=== PATIENT | female | born 1980 | race Caucasian/White ===

== ENCOUNTER 2018-05-08 22:51 | Outpatient (CLI) | payer OTHER ==
[2018-05-09 00:35] LABS: ADD UMIC YES; UR ASCORBIC ACID NEGATIVE (NEGATIVE); UR BACTERIA FEW /HPF (NONE SEEN); UR BILIRUBIN (Dip) NEGATIVE (NEGATIVE); UR BLOOD (Dip) 2+ mg/dL (NEGATIVE); UR CLARITY SLIGHTLY CLOUDY (CLEAR); UR COLOR YELLOW (YELLOW); UR GLUCOSE (Dip) NEGATIVE (NEGATIVE); UR KETONES (Dip) TRACE mg/dL (NEGATIVE); UR LEUKOCYTE ESTERASE (Dip) NEGATIVE Leu/ul (NEGATIVE); UR MUCUS FEW /HPF (NONE SEEN); UR NITRITE (Dip) NEGATIVE (NEGATIVE); UR RBC 50 /HPF (0-5); UR SPECIFIC GRAVITY (Dip) 1.012 (1.003-1.030); UR SQUAMOUS EPITHELIAL CELL FEW /HPF (FEW); UR TOTAL PROTEIN (Dip) NEGATIVE (NEGATIVE); UR UROBILINOGEN (Dip) NEGATIVE (NEGATIVE); UR WBC 3 /HPF (0-5)
[2018-05-09] MEDS: LACTATED RINGER'S 1,000 ML IV ×2 (02:20→04:30)
[2018-05-09 03:12] LABS: ADD MAN DIFF? NO
[2018-05-09 03:14] LABS: WHITE BLOOD COUNT 11.6 10^3/ul (4.8-10.8)
[2018-05-09 03:14] LABS: BASOPHIL # 0.1 10^3/ul (0.0-0.1); BASOPHILS % 0.4 % (0.0-2.0); EOSINOPHILS # 0.3 10^3/ul (0.0-0.5); EOSINOPHILS % 2.4 % (0.0-7.0); HEMATOCRIT 36.4 % (37.0-47.0); LYMPHOCYTES # 2.9 10^3/ul (0.8-2.9); LYMPHOCYTES % 24.7 % (15.0-51.0); MEAN CORPUSCULAR HEMOGLOBIN 30.9 pg (29.0-33.0); MEAN CORPUSCULAR VOLUME 93.8 fl (82.0-101.0); MEAN PLATELET VOLUME 10.2 fl (7.4-10.4); MONOCYTES % 8.7 % (0.0-11.0); NEUTROPHIL # 7.3 10^3/ul (1.6-7.5); NEUTROPHILS % 63.3 % (39.0-77.0); PLATELET COUNT 291 10^3/UL (140-415); RED BLOOD COUNT 3.88 10^6/ul (4.20-5.40); RED CELL DISTRIBUTION WIDTH 12.5 % (11.5-14.5)
== END 2018-05-09 06:45 | disposition home or self-care (01) ==
LOC: OBT 22:51 → L-D 22:51 → OBT 05-09 06:45
DX: O62.9 Abnormality of forces of labor, unspecified (principal); O09.523 Supervision of elderly multigravida, third trimester; Z3A.34 34 weeks gestation of pregnancy
CPT/HCPCS: 36415; 76815; 76817; 81001; 85025; 96360; 96361

== ENCOUNTER 2018-05-09 19:25 | Outpatient (CLI) | payer OTHER | END 2018-05-09 21:05 | disposition home or self-care (01) | LOC: OBT 19:25 → L-D 19:26 → OBT 21:05 | DX: O62.9 Abnormality of forces of labor, unspecified (principal); O09.523 Supervision of elderly multigravida, third trimester; Z3A.34 34 weeks gestation of pregnancy | CPT/HCPCS: Z7500 ==

== ENCOUNTER 2018-05-30 12:55 | Inpatient (IN) | payer OTHER ==
[2018-05-30] MEDS ORDERED: MISOPROSTOL 200 MCG TAB PR (17:00)
[2018-05-30] MEDS ORDERED: OXYTOCIN 30 UNITS/LR 500 ML IV ×2 (17:00)
[2018-05-30] MEDS ORDERED: CARBOPROST 250 MCG INJ IM (17:00)
[2018-05-30] MEDS ORDERED: METHYLERGONOVINE 0.2 MG INJ IM (17:00)
[2018-05-30] MEDS ORDERED: LIDOCAINE 1% (MPF) 30 ML INJ INJ (17:00)
[2018-05-30] MEDS ORDERED: MOMETASONE 0.24 GM INHALER INH (17:02)
[2018-05-30 17:07] LABS: ADD MAN DIFF? NO
[2018-05-30 17:09] LABS: BASOPHILS % 0.4 % (0.0-2.0); EOSINOPHILS # 0.2 10^3/ul (0.0-0.5); HEMATOCRIT 40.2 % (37.0-47.0); HEMOGLOBIN 13.3 g/dl (12.0-16.0); LYMPHOCYTES # 2.6 10^3/ul (0.8-2.9); MEAN CORPUSCULAR HEMOGLOBIN 31.1 pg (29.0-33.0); MEAN CORPUSCULAR HGB CONC 33.1 g/dl (32.0-37.0); MEAN CORPUSCULAR VOLUME 93.9 fl (82.0-101.0); MEAN PLATELET VOLUME 9.8 fl (7.4-10.4); MONOCYTE # 0.9 10^3/ul (0.3-0.9); MONOCYTES % 7.6 % (0.0-11.0); NEUTROPHIL # 7.4 10^3/ul (1.6-7.5); NEUTROPHILS % 66.3 % (39.0-77.0); PLATELET COUNT 267 10^3/UL (140-415); RED BLOOD COUNT 4.28 10^6/ul (4.20-5.40); RED CELL DISTRIBUTION WIDTH 12.9 % (11.5-14.5)
[2018-05-30 17:09] LABS: WHITE BLOOD COUNT 11.2 10^3/ul (4.8-10.8)
[2018-05-30 17:24] LABS: INR 0.86; PROTIME 11.8 Sec (11.9-14.9); PT RATIO 0.9
[2018-05-30 17:25] LABS: PARTIAL THROMBOPLASTIN TIME 26.7 Sec (23.0-35.0)
[2018-05-30] MEDS: LACTATED RINGER'S 1,000 ML IV (18:19)
[2018-05-30 19:37] LABS: HEPATITIS B SURFACE ANTIGEN NEGATIVE (NEGATIVE)
[2018-05-30] MEDS ORDERED: MINERAL OIL LIGHT 10 ML VIAL TOP (20:30)
[2018-05-30] MEDS: AMPICILLIN 2 GM/NS (PMX) 100 ML IV (20:36)
[2018-05-30 22:34] LABS: RAPID PLASMA REAGIN NONREACTIVE (NR)
[2018-05-31] MEDS: LACTATED RINGER'S 1,000 ML IV ×3 (01:17→22:46)
[2018-05-31] MEDS: AMPICILLIN 1 GM/NS (PMX) 50 ML IV ×3 (01:19→12:49)
[2018-05-31] MEDS: OXYTOCIN 30 UNITS/LR 500 ML IV ×2 (15:44→17:33)
[2018-05-31] MEDS ORDERED: BUTORPHANOL 2 MG INJ (16:11)
[2018-05-31] MEDS: BUTORPHANOL 2 MG INJ IV (16:13)
[2018-05-31] MEDS ORDERED: BUTORPHANOL 1 MG INJ IV (16:30)
[2018-05-31] MEDS ORDERED: ONDANSETRON 4 MG INJ IV (18:30)
[2018-05-31] MEDS: IBUPROFEN 600 MG TAB PO ×3 (18:30→23:06)
[2018-05-31] MEDS ORDERED: MISOPROSTOL 200 MCG TAB PR (18:30)
[2018-05-31] MEDS ORDERED: METHYLERGONOVINE 0.2 MG INJ IM (18:30)
[2018-05-31] MEDS ORDERED: ONDANSETRON 4 MG TAB PO (18:30)
[2018-05-31] MEDS ORDERED: OXYTOCIN 30 UNITS/LR 500 ML IV (18:30)
[2018-05-31] MEDS ORDERED: ZOLPIDEM 5 MG TAB PO (18:30)
[2018-05-31] MEDS ORDERED: NACL 0.9% 3 ML SYG IV (18:30)
[2018-05-31] MEDS ORDERED: SENNA/DOCUSATE NA (8.6MG/50MG) TAB PO (18:30)
[2018-05-31] MEDS ORDERED: CARBOPROST 250 MCG INJ IM (18:30)
[2018-05-31] MEDS: OXYCODONE/ASPIRIN (4.88/325) TAB PO (19:01)
[2018-05-31] MEDS: SENNA/DOCUSATE NA (8.6MG/50MG) TAB PO (20:31)
[2018-05-31] MEDS: WITCH HAZEL/GLYCERIN PAD PR (20:31)
[2018-05-31] MEDS: LANOLIN HPA 1 PKT TOP (20:31)
[2018-05-31] MEDS: LORATADINE 10 MG TAB PO (23:06)
[2018-06-01] MEDS: OXYCODONE/ASPIRIN (4.88/325) TAB PO (00:08)
[2018-06-01] MEDS: OXYTOCIN 30 UNITS/LR 500 ML IV (00:23)
[2018-06-01] MEDS: LACTATED RINGER'S 1,000 ML IV ×2 (01:30→09:30)
[2018-06-01] MEDS: IBUPROFEN 600 MG TAB PO ×4 (05:21→23:31)
[2018-06-01] MEDS: ACETAMINOPHEN 325 MG TAB PO ×3 (06:24→15:04)
[2018-06-01 08:20] LABS: ADD MAN DIFF? NO
[2018-06-01 08:31] LABS: WHITE BLOOD COUNT 12.7 10^3/ul (4.8-10.8)
[2018-06-01 08:31] LABS: BASOPHIL # 0.1 10^3/ul (0.0-0.1); BASOPHILS % 0.6 % (0.0-2.0); EOSINOPHILS # 0.4 10^3/ul (0.0-0.5); EOSINOPHILS % 2.9 % (0.0-7.0); HEMATOCRIT 36.1 % (37.0-47.0); HEMOGLOBIN 11.9 g/dl (12.0-16.0); LYMPHOCYTES # 2.9 10^3/ul (0.8-2.9); LYMPHOCYTES % 22.5 % (15.0-51.0); MEAN CORPUSCULAR HEMOGLOBIN 30.9 pg (29.0-33.0); MEAN CORPUSCULAR VOLUME 93.8 fl (82.0-101.0); MEAN PLATELET VOLUME 10.3 fl (7.4-10.4); NEUTROPHIL # 8.3 10^3/ul (1.6-7.5); NEUTROPHILS % 65.5 % (39.0-77.0); PLATELET COUNT 258 10^3/UL (140-415); RED BLOOD COUNT 3.85 10^6/ul (4.20-5.40)
[2018-06-01] MEDS: SENNA/DOCUSATE NA (8.6MG/50MG) TAB PO ×3 (09:00→21:38)
[2018-06-01 21:10] LABS: RHOGAM PROFILE 1 1
[2018-06-02] MEDS: ACETAMINOPHEN 325 MG TAB PO ×3 (01:41→13:15)
[2018-06-02] MEDS: IBUPROFEN 600 MG TAB PO ×2 (05:42→12:00)
[2018-06-02] MEDS: INFLUENZA VIRUS VACCINE 0.5 ML (DISPENSING) IM* (08:56)
[2018-06-02] MEDS: SENNA/DOCUSATE NA (8.6MG/50MG) TAB PO (09:00)
[2018-06-02] MEDS: DIPHTH/TET/ACEL PERTUSS (ADULT) 0.5 ML VIAL IM* (13:16)
== END 2018-06-02 15:37 | disposition home or self-care (01) | DRG 807 ==
LOC: OBT 12:55 → PP1 05-31 18:16 → L-D 12:56 → OBT 15:34 → L-D 15:34
PROVIDERS: Obstetrics & Gynecology
PROC: 10E0XZZ Delivery of Products of Conception, External Approach (ICD-10-PCS; principal; 2018-05-31)
DX: O69.81X0 Labor and delivery complicated by cord around neck, without compression, not applicable or unspecified (principal); Z37.0 Single live birth; Z3A.38 38 weeks gestation of pregnancy
CPT/HCPCS: 76818; 85025; 85610; 85730; 86592; 86850; 86870; 86885; 86900; 86901; 87340; 90686; 90715; 99464